=== PATIENT | female | born 1995 | race Caucasian/White ===

== ENCOUNTER 2017-08-15 13:14 | Emergency (ER) | payer BC, OTHER ==
[2017-08-16] MEDS ORDERED: Sodium Chloride 0.9% 0 ML ONE (12:25)
== END 2017-08-15 13:30 ==
LOC: BURERS 13:14
DX: S09.90XA Unspecified injury of head, initial encounter (principal); Z79.899 Other long term (current) drug therapy; Y04.0XXA Assault by unarmed brawl or fight, initial encounter
CPT/HCPCS: 99283; A4216

== ENCOUNTER 2019-09-05 23:18 | Outpatient (CLI) | payer OTHER, BC ==
[2019-09-06 18:43] LABS: SARS-CoV-2 MS2 Positive; SARS-CoV-2 N Gene Negative; SARS-CoV-2 S Gene Negative; SARS-CoV-2 orf1ab Negative
== END 2019-09-05 23:19 | disposition home or self-care (01) ==
LOC: BURLABSP 23:18
PROVIDERS: ATTEND Family Medicine
DX: Z11.59 Encounter for screening for other viral diseases (principal)
CPT/HCPCS: 87635; U0003